=== PATIENT | male | born 1995 | race Two or more races ===

== ENCOUNTER 2017-10-05 19:41 | Emergency (ER) | payer OTHER ==
[~2017-10-05] VITALS: Ht 172.7 cm; Wt 108.9 kg
[2017-10-05 19:45] VITALS: BP 120/66
== END 2017-10-05 21:00 | disposition home or self-care (01) ==
LOC: ER 19:48
DX: R20.2 Paresthesia of skin (principal); F17.200 Nicotine dependence, unspecified, uncomplicated
CPT/HCPCS: A4606; Z7502; Z7610